=== PATIENT | female | born 1965 | race Caucasian/White ===

== ENCOUNTER → 2019-02-14 13:47 | Outpatient (CLI) | payer OTHER, SELFPAY ==
--- NOTE | 2019-02-14 13:51 | US_ITS ---
STUDY: ULTRASOUND BREAST - RIGHT REASON FOR EXAM: Female, 53 years old. Abnormal screening mammogram. TECHNIQUE: Axial and longitudinal images of the RIGHT breast were performed with a high resolution ultrasound transducer. COMPARISON: Comparison is made with prior outside mammogram dated January 08, 2019. FINDINGS: RIGHT Breast: There is a 5 mm x 4 mm x 3 mm cyst at the 12:00 position of the breast at 2 cm from the nipple. IMPRESSION: 5 mm x 4 mm x 3 mm cyst at the 12:00 position of the breast at 2 cm from the nipple. ASSESSMENT CATEGORY: BIRADS Category 2: Benign. A letter regarding these results will be sent to the patient by the facility within 30 days. Electronically Signed: Carroll Bray, at 14:55 EDT , Service support , STUDY: ULTRASOUND BREAST - LEFT REASON FOR EXAM: Female, 53 years old. Abnormal screening mammogram. TECHNIQUE: Axial and longitudinal images of the LEFT breast were performed with a high resolution ultrasound transducer. COMPARISON: Comparison is made with prior outside mammogram dated January 08, 2019. FINDINGS: LEFT Breast: There is a 5 mm x 4 mm x 3 mm cyst at the 11:00 position of the breast at 2 cm from the nipple. US/Breast Complete Bilateral IMPRESSION: 5 mm x 4 mm x 3 mm cyst at 11:00 position breast at 2 cm from the nipple. ASSESSMENT CATEGORY: BIRADS Category 2: Benign. A letter regarding these results will be sent to the patient by the facility within 30 days. Electronically Signed: Carroll Bray, at 14:55 EDT , Service support ,
== END ==
PROVIDERS: Family Provider Family Medicine; PCP Family Medicine; Referring Provider Family Medicine; Visit Provider Family Medicine
DX: R92.8 Other abnormal and inconclusive findings on diagnostic imaging of breast (principal)
CPT/HCPCS: 76641

== ENCOUNTER 2021-10-06 09:45 | Emergency (ER) | payer OTHER, SELFPAY ==
[2021-10-06 09:45] VITALS: BP 141/82; PULSE 87; RESP 16; TEMP 36.3; O2SAT 100; BMI 20.7
--- NOTE | 2021-10-06 10:11 | RAD_ITS ---
INDICATION: pain EXAMINATION/TECHNIQUE: X-RAY - LEFT XR Elbow Min 3 Views COMPARISON: None. FINDINGS: Soft tissue swelling visualized surrounding the right elbow. Elevation of the anterior fat pad, no significant evaluation of the posterior fat pads is seen. No radiopaque foreign body. No evidence of cortical irregularity or lucency to suggest a displaced fracture, no evidence of lytic or sclerotic bone lesion is seen. Articular surfaces appear unremarkable. There is a lucency visualized along the lateral aspect of the radial head however demonstrates well-corticated borders cysts most likely represents a vascular groove would recommend clinical correlation for localized tenderness. Subtle radiopaque density visualized along the lateral aspect of the radial head on the oblique view RAD/Elbow min 3 Views IMPRESSION: Subtle radiopaque density visualized along the lateral aspect of the radial head on the oblique view, would recommend clinical correlation and follow-up evaluation. Electronically Signed: Lex Mckay MD at 10:41 EST Tel , Service support ,
--- NOTE | 2021-10-06 10:11 | RAD_ITS ---
INDICATION: pain EXAMINATION/TECHNIQUE: X-RAY - RIGHT XR Hand Min 3 Views 3 VIEWS COMPARISON: None. FINDINGS: SOFT TISSUES: No soft tissue swelling or gas. No radiopaque foreign body. BONES/JOINTS: Degenerative bone changes. No acute fracture or subluxation.. Unremarkable alignment. Mild narrowing of the interphalangeal joint spaces is seen but no evidence of erosive changes. Juxta-articular osteopenia is seen. No sclerotic or destructive changes observed. RAD/Hand Min 3 Views IMPRESSION: Degenerative changes, no acute osseous abnormality seen Electronically Signed: Lex Mckay MD at 10:42 EST Tel , Service support ,
--- NOTE | 2021-10-06 10:11 | RAD_ITS ---
INDICATION: pain EXAMINATION/TECHNIQUE: X-RAY - RIGHT XR Wrist Min 3 Views 3 VIEWS COMPARISON: None. FINDINGS: SOFT TISSUES: No soft tissue swelling or gas. No radiopaque foreign body. BONES/JOINTS: No acute fracture or subluxation.. Unremarkable alignment. Mild narrowing of the joint spaces is seen. Degenerative changes seen... No sclerotic or destructive changes observed. RAD/Wrist min 3 Views IMPRESSION: Degenerative changes, no acute osseous abnormality seen. Electronically Signed: Lex Mckay MD at 10:43 EST Tel , Service support ,
--- NOTE | 2021-10-06 10:23 | EDS_ITS ---
HPI History of Present Illness Chief Complaint: Fall Narrative Narrative: hand and wrist pain as well as left elbow pain. Patient suffered a mechanical fall at [id number] female presenting for evaluation of right after trying to cut some straps and lost her balance falling on her her hands and sustaining a bruise to the left arm above the left elbow. She states she hit her face but no LOC, visual complaints, nausea. She has a stable gait. She states that she [facility] however they neglected to do x-rays because they felt there was no acute fractures. Patient notes that she is had some swelling in the right hand and wrist today. She states her bruising over the left elbow is worse. Patient taking ibuprofen and icing the areas of concern. [facility] Medical History Contusion of face Strain of left elbow Strain of left wrist Strain of right wrist Home Medications NK 10/05/21 [History Last Taken Unknown] Allergy/AdvReac Type Severity Reaction Status Date / Time No Known Allergies Allergy Verified 10/05/21 11:47 Surgical History History of repair of hip fracture Social History Smoking Status: Current every day smoker tobacco type: cigarettes ROS ROS ED Constitutional Constitutional ED: Denies chills, fever(s) or sweats Eyes Eyes: Denies blurry vision or change in vision ENT ENT ED: Denies ear pain or sore throat Cardiovascular Cardiovascular: Denies chest pain, palpitations or racing heartbeat Respiratory/Chest Respiratory/Chest: Denies cough, dyspnea or sputum Gastrointestinal Gastrointestinal: Denies abdominal pain, constipation, diarrhea, nausea or vomiting Genitourinary Genitourinary ED: Denies dysuria, hematuria or urinary frequency Musculoskeletal Musculoskeletal: Denies arthralgias, myalgias or neck pain Integumentary Reports other Details: Bruising to right wrist, hand, left elbow. ; Denies abscess, Abrasions or rash Neurologic Neurologic: Denies headache(s), paresthesias or weakness Psychiatric Psychiatric: Denies anxiety, depression, suicidal ideation or suicidal thoughts Endocrine Endocrinology: Denies polydipsia or polyuria EXAM Physical Exam Const Vital Signs: 10/06/21 09:45 10/06/21 09:49 Temperature 97.4 F L Temperature Source Temporal Pulse Rate 87 Respiratory Rate 16 Respiratory Effort Normal Non-Labored Blood Pressure 141/82 H Blood Pressure Mean 101 Pulse Ox 100 Oxygen Delivery Method Room Air Room Air Positive well nourished General Appearance ED: NAD HEENT Reports moist mucous membranes normocephalic Eyes PERRL and EOMs intact bilaterally Resp normal respiratory effort and clear to auscultation bilaterally Cardio regular rate and regular rhythm Extremity Extremity Narrative: Tenderness to palpation over right wrist dorsally. No obvious bony deformities. There are some soft tissue swelling surrounding this area. Patient has full range of motion of the right wrist. Right hand neurovascular intact brisk cap refill to all 5 fingers. Left elbow has some bruising above the olecranon process. This measures about 4 cm in is circular in nature. No bony tenderness over the olecranon. Patient has full range of motion preserved in the left elbow. Neuro oriented x3 and CN's II-XII intact bilaterally Sensorium / Orientation: alert Psych mental status grossly normal Skin Skin Narrative: As noted above MDM MDM MDM Narrative Medical decision making narrative: Patient presenting for evaluation due to a fall and increasing pain and swelling in the right wrist and hand as well as the bruising over the left elbow. I obtained images of the right hand, right wrist, left elbow and on my interpretation there are no fractures or subluxations present. The radiologist does note a small foreign body located adjacent to the radial head however this is not clinically where she is having pain. Is unsure the etiology of this but I do not believe it would change her course. She is placed in a cock-up wrist splint for comfort of her right hand. She is counseled to ice and elevate these. She will [facility] with [facility] to ensure resolution. Patient to continue to use ibuprofen and Tylenol in alternating doses Impression: 1. Fall 2. Right wrist strain 3. Right hand strain 4. Left elbow contusion Lab Data Attestation: I reviewed the patient's lab results. Discharge Plan Triage Chief Complaint: Fall ED Provider: Leonel Choi Dx/Rx/DC Orders Instructions: ED Contusion, Elbow, ED Hand Sprain, ED Wrist Sprain Prescriptions: No Action NK RF: 0 Primary Care Provider: Mark Paige Referrals: [facility] [NON-[facility]] - 2 Days for wound check Mark Paige MD [Primary Care Provider] - Disposition Disposition: Home, Self Care
[2021-10-06 11:26] VITALS: BP 124/66; PULSE 71; RESP 15; O2SAT 98
== END 2021-10-06 11:27 | disposition home or self-care (01) ==
LOC: ED 11:21
PROVIDERS: Emergency Provider Student in an Organized Health Care Education/Training Program; PCP Family Medicine
DX: S66.911A Strain of unspecified muscle, fascia and tendon at wrist and hand level, right hand, initial encounter (principal); S50.02XA Contusion of left elbow, initial encounter; W18.30XA Fall on same level, unspecified, initial encounter; Y93.89 Activity, other specified; Y92.89 Other specified places as the place of occurrence of the external cause; Y99.0 Civilian activity done for income or pay; F17.210 Nicotine dependence, cigarettes, uncomplicated
CPT/HCPCS: 73080; 73110; 73130; 99283

== ENCOUNTER 2022-04-07 08:06 | Emergency (ER) | payer OTHER, SELFPAY ==
[2022-04-07 08:07] VITALS: BP 99/81; PULSE 79; RESP 16; TEMP 36.3; O2SAT 98; BMI 19.7
--- NOTE | 2022-04-07 08:08 | NURSING ---
NO OLD EKGS
--- NOTE | 2022-04-07 08:10 | EKG12_ITS ---
Test Reason : CP Blood Pressure : / mmHG Vent. Rate : 085 BPM Atrial Rate : 085 BPM P-R Int : 122 ms QRS Dur : 078 ms QT Int : 386 ms P-R-T Axes : 079 074 069 degrees QTc Int : 459 ms Normal sinus rhythm Low voltage QRS (Limb Leads) Confirmed by DUTCH MCKEE, ANNY ([id number]), slot editor YOHANA RAMIREZ ([id number]) on 04/11/2022 10:13:17 AM Referred By: Confirmed By:ANNY JUDD MD
[2022-04-07 08:13] VITALS: O2SAT 99
--- NOTE | 2022-04-07 08:21 | EDS_ITS ---
HPI History of Present Illness Chief Complaint: Chest Pain Informant: patient Onset/Context/Timing Onset: Days Activity at onset: gradual Timing: Continuous Quality: Positive for Aching and Dull Location: Left Chest Current Severity: Mild Maximum Severity: Mild Worsened By: Nothing Relieved By: Nothing Associated Symptoms: Positive for Dyspnea; Negative for Nausea, Vomiting, Diaphoresis, Cough, Fever, Lightheadedness, Acid Reflux or Palpitations Narrative Narrative: 56-year-old female no seen past medical history. Currently on no medications. Does have a 30+ pack year history of smoking. Father had some type of cardiac disease no one else in the family. Patient states that she was moving and loading firewood I think around Sunday. Sunday she started having left-sided chest pain. Its been there over the last 4 to 5 days. Nothing particular makes it better or worse. She has no history of cardiac disease. No history of chest pain. She is never had a DVT or PE. She denies any recent travel, surgery or immobilization. There is no family history of clotting disorders or blood clots. She has had no hemoptysis. The pain is not pleuritic. She has had no calf pain or swelling. She denies any exertional symptoms. She is very active. She denies any nausea or diaphoresis. She does not believe she has any history of a prior cardiac catheterization or stress test. Prior Similar Symptoms: No Recent Illness/Hospitalization: No CVD Risk Factors: Positive for Smoking; Negative for Hypertension, Diabetes, Hypercholesterolemia or Family History 1' </=55 PE Risk Factors: Negative for Recent Travel/Surgery, Recent Immobilization, Prior DVT or PE or OCP + Smoking + >/=35 TAD Risk Factors: Negative for Marfan's Syndrome, Hypertension or Family History [facility] Medical History Contusion of face Strain of left elbow Strain of left wrist Strain of right wrist Home Medications NK 10/05/21 [History Last Taken Unknown] Allergy/AdvReac Type Severity Reaction Status Date / Time No Known Allergies Allergy Verified 04/07/22 08:16 Surgical History History of repair of hip fracture Social History Smoking Status: Current every day smoker tobacco type: cigarettes ROS ROS ED ROS Narrative No recent illness. Review of Systems ROS Unobtainable: Denies due to encephalopathy Constitutional Constitutional ED: Denies chills Eyes Eyes: Reports none ENT ENT ED: Denies ear pain Cardiovascular Cardiovascular: Reports as per HPI and chest pain; Denies palpitations or racing heartbeat Respiratory/Chest Respiratory/Chest: Denies cough Gastrointestinal Gastrointestinal: Denies abdominal pain or constipation Genitourinary Genitourinary ED: Denies dysuria Musculoskeletal Musculoskeletal: Denies arthralgias Integumentary Denies abscess Neurologic Neurologic: Denies headache(s) Psychiatric Psychiatric: Denies anxiety Endocrine Endocrinology: Denies cold intolerance Hematologic/Lymphatic Hematologic/Lymphatic: Denies easy bleeding Allergic/Immunologic Allergic/Immunologic ED: Denies mouth swelling EXAM Physical Exam Narrative Exam Narrative: 56-year-old female no acute distress. Vital signs are stable and afebrile. Pulse ox is 98% on room air no signs of hypoxia. H EENT exam unremarkable. Neck nontender no lymphadenopathy. Lungs clear to auscultation bilaterally. Heart regular rate and rhythm no murmur. Abdomen is soft and nontender. Chest wall nontender. Patient is moving all 4 extremities. Equal symmetrical radial pulses. Calves are nontender without edema or cords. Neurologically she is awake and alert with no focal motor deficits. Back is nontender. Const Vital Signs: 04/07/22 08:07 04/07/22 08:13 04/07/22 10:22 Temperature 97.4 F L Temperature Source Temporal Pulse Rate 79 63 Respiratory Rate 16 20 H Blood Pressure 99/81 H 120/69 Blood Pressure Mean 87 86 Pulse Ox 98 99 98 Oxygen Delivery Method Room Air Room Air Room Air Positive well nourished; Negative for obese, cachectic, contractures or unkempt General Appearance ED: Negative for unkempt, cachectic or contractures Nutritional Appearance: Negative for cachectic or obese HEENT Reports moist mucous membranes normocephalic and atraumatic; Negative for trauma or tenderness Eyes PERRL and EOMs intact bilaterally General Eye ED: Negative for pale conjunctiva or scleral icterus Neck no lymphadenopathy, supple and no JVD General: Negative for tenderness Chest Wall inspection of chest normal and palpation of chest normal Resp normal respiratory effort and clear to auscultation bilaterally Effort and Inspection: Negative for respiratory distress or pain with movement Auscultation: Negative for rales, rhonchi or wheezes Cardio regular rate, regular rhythm, S1 normal heart sound, S2 normal heart sound and no murmurs Peripheral Pulses: pulses 2+ throughout GI normal to inspection, nondistended, normoactive bowel sounds, soft to palpation, non-tender, non-distended and no masses; Negative for hepatosplenomegaly Auscultation: Negative for hyperactive bowel sounds Palpation: Negative for splenomegaly, mass or other Back/Spine no CVA tenderness and no thoracic nor lumbar tenderness General Back: Negative for CVA tenderness Cervical Spine: Negative for cervical spine tenderness Extremity normal to inspection General Extremety ED: Negative for edema, pulses abnormal or tenderness General Extremity: Negative for edema or pulses abnormal Neuro oriented x3, CN's II-XII intact bilaterally and no sensory deficits noted Sensorium / Orientation: awake, alert, oriented to person, oriented to place and oriented to time; Negative for confused, lethargic or stuporous Motor Exam: strength 5/5 throughout Psych Appearance: Negative for unkempt Skin no rashes or lesions noted and no wounds General Skin Exam: Negative for jaundice Rashes: No rashes noted Trauma: Negative for abrasion Heart Score History: Moderately Suspicious ECG: Normal Age: >45 - <65 years Risk Factors: 1 or 2 Risk Factors Score: 3 MDM MDM MDM Narrative Medical decision making narrative: 56-year-old female no seen past medical history. Her biggest risk factor she is a smoker. Has not classic but left-sided chest pain. Is not reproducible. She has no risk factors or history of a DVT or PE or any family history. She will undergo cardiac work-up. Her EKG initially is unremarkable. Yayo already treated her with aspirin. Repeat exam at 8:50 AM patient doing well. Exam benign. We have gone over her test results. Just awaiting her D-dimer. Patient doing well at noon. She will be discharged home with outpatient follow- up. Lab Data Attestation: I reviewed the patient's lab results. Lab results narrative: CBC shows a white count of 5. H&H is 16 and 51. Electrolytes show a gap of 4 normal BUN and creatinine. Glucose of 106. Troponin less than 3. Chest x-ray no acute abnormality. D-dimer is normal at 0.46. Both troponins are negative at less than 3. Labs: Laboratory Results - last 24 hr 04/07/22 04/07/22 04/07/22 07:57 07:57 08:10 WBC 5.6 RBC 5.16 Hgb 16.7 H Hct 51.4 H MCV 99.6 H MCH 32.4 H MCHC 32.5 RDW Std Deviation 51.4 H RDW Coeff of Isauro 13.9 Plt Count 298 MPV 8.9 Immature Gran % (Auto) 0.400 Neut % (Auto) 59.7 Lymph % (Auto) 30.4 [place] % (Auto) 7.7 Eos % (Auto) 1.1 Baso % (Auto) 0.7 Absolute Neuts (auto) 3.3 Absolute Lymphs (auto) 1.70 Nucleated RBC % 0 D-Dimer Quant (PE/DVT) 0.46 Sodium 139 Potassium 4.2 Chloride 108 H Carbon Dioxide 27.0 Anion Gap 4 L BUN 12 Creatinine 0.86 Estim Creat Clear Calc 58.65 Est GFR (MDRD) Af Amer 87 Est GFR (MDRD) Non-Af 72 BUN/Creatinine Ratio 14.0 Glucose 106 Calcium 9.6 Troponin I High Sens < 3 L 04/07/22 10:30 WBC RBC Hgb Hct MCV MCH MCHC RDW Std Deviation RDW Coeff of Isauro Plt Count MPV Immature Gran % (Auto) Neut % (Auto) Lymph % (Auto) [place] % (Auto) Eos % (Auto) Baso % (Auto) Absolute Neuts (auto) Absolute Lymphs (auto) Nucleated RBC % D-Dimer Quant (PE/DVT) Sodium Potassium Chloride Carbon Dioxide Anion Gap BUN Creatinine Estim Creat Clear Calc Est GFR (MDRD) Af Amer Est GFR (MDRD) Non-Af BUN/Creatinine Ratio Glucose Calcium Troponin I High Sens < 3 L Radiography Chest X-Ray - ED: 1 View, Read by ED Physician, Heart, Lungs, Mediastinum, Bony Structures, No Acute Disease and Chronic Changes Diagnostic Testing: Clinical Impression(s) from Imaging Studies Chest X-Ray 04/07/22 08:22 IMPRESSION: Hyperinflation. The lungs are clear. Electronically Signed: Carroll Bray MD at 8:46 EDT , Chest x-ray, portable, single view interpreted both by myself and radiologist shows no acute abnormality. Normal cardiac silhouette mediastinum. Suspect old left sixth rib fracture. Rhythm Strip Rhythm Strip: Sinus Rhythm Rate: 85 Ectopy: None EKG Initial EKG: Attestation: I personally reviewed and interpreted this EKG as follows: Interpretation: Sinus Rhythm and No Acute Injury Pattern Comments: Normal sinus rhythm rate 85 no acute signs of NE or ischemia. No ST elevation or depression. No dysrhythmia. Discharge Plan Triage Chief Complaint: Chest Pain ED Provider: Sarmad Larson Dx/Rx/DC Orders Clinical Impression: Chest pain Instructions: ED Chest Pain, Uncertain Cause Prescriptions: No Action NK Primary Care Provider: Care Physician,No Primary Referrals: Mark Paige MD [[facility]] - 3-5 Days if not improving Activity Restrictions/Additional Instructions: Follow up with your primary care physician. If you have recurrent chest pain need to be reevaluated. Long-term try to stop smoking. Disposition Disposition: Home, Self Care
--- NOTE | 2022-04-07 08:22 | RAD_ITS ---
STUDY: X-RAY CHEST REASON FOR EXAM: Female, 56 years old. Chest pain TECHNIQUE: Single AP portable view of the chest. COMPARISON: None. FINDINGS: EKG electrodes are seen. Hyperinflation. The lungs are clear. There is no demonstrated pleural abnormality. Normal size heart. Normal mediastinum and glenda. Normal visualized pulmonary arteries. Normal visualized aortic arch and descending thoracic aorta. Normal visualized thoracic spine. Normal visualized ribs, clavicles, and shoulders. There is no demonstrated abnormality of the visualized soft tissue structures of the upper abdomen. RAD/Chest 1 View (Portable) IMPRESSION: Hyperinflation. The lungs are clear. Electronically Signed: Carroll Bray MD at 8:46 EDT ,
[2022-04-07 08:35] LABS: Absolute Neutrophil Count 3.3 X10^3/uL (2.0-7.7); Basophil# 0.04 X10^3/uL; Basophil% 0.7 % (0-1); Eosinophil# 0.06 X10^3/uL; Eosinophils% 1.1 % (0-5); Hematocrit 51.4 % (37-47); Hemoglobin 16.7 g/dL (12.0-15.0); Lymphocyte % 30.4 % (19-41); Mean Corp Hgb Conc 32.5 g/dL (32-36); Mean Corpuscular Hgb 32.4 pg (27.0-32.0); Mean Corpuscular Volume 99.6 fL (81-99); Mean Platelet Vol. 8.9 fl (6.2-12.0); Monocyte# 0.43 X10^3/uL; Monocyte% 7.7 % (0-10); NRBC Flagged by Analyzer 0 % (0-5); Neutrophil # 3.34 X10^3/uL (2.7-7.7); Neutrophil % 59.7 % (47-70); Platelet Count 298 K/mm3 (150-450); RBC Distribution Width CV 13.9 % (11.6-14.6); RBC Distribution Width SD 51.4 fl (35.1-43.9); Red Blood Count 5.16 M/mm3 (4.2-5.4); White Blood Count 5.6 K/mm3 (4.4-11.0)
[2022-04-07 08:44] LABS: Anion Gap 4 (5-15); BUN 12 mg/dL (7-18); Calcium,Total 9.6 mg/dL (8.5-10.1); Chloride 108 mmol/L (98-107); Creatinine, Serum 0.86 mg/dL (0.55-1.02); EST Glomerular Filtration Rate 72 mL/min (>60); Est Glom Filt Rate - Afr Amer 87 mL/min (>60); Estimated Creatinine Clearance 58.65 ml/min; Glucose 106 mg/dL (74-106); Potassium 4.2 mmol/L (3.5-5.1); Sodium Level 139 mmol/L (136-145); Troponin-I HS (w/2H Reflex) < 3 pg/mL (3.0-54.0)
[2022-04-07 09:19] LABS: D-Dimer Quantitative (DVT/PE) 0.46 FEU/ug/m (0.27-0.49)
[2022-04-07 10:22] VITALS: BP 120/69; PULSE 63; RESP 20; O2SAT 98
[2022-04-07 10:22] LABS: Reflex Troponin-HS? (from REC) Y
[2022-04-07 10:57] LABS: Troponin-I HS < 3 pg/mL (3.0-54.0)
[2022-04-07 12:09] VITALS: BP 117/51; PULSE 67
== END 2022-04-07 12:16 | disposition home or self-care (01) ==
PROVIDERS: Emergency Provider Emergency Medicine; Visit Provider Emergency Medicine
DX: R07.9 Chest pain, unspecified (principal); F17.210 Nicotine dependence, cigarettes, uncomplicated; R06.00 Dyspnea, unspecified
CPT/HCPCS: 36415; 71045; 80048; 84484; 85025; 85379; 93005; 99285; A4216

== ENCOUNTER → 2022-10-23 | Outpatient (CLI) | payer BC, SELFPAY ==
--- NOTE | 2022-10-23 12:38 | EKG12_ITS ---
Test Reason : PRE OP Blood Pressure : / mmHG Vent. Rate : 094 BPM Atrial Rate : 094 BPM P-R Int : 118 ms QRS Dur : 076 ms QT Int : 348 ms P-R-T Axes : 079 079 046 degrees QTc Int : 435 ms Normal sinus rhythm Nonspecific ST abnormality Abnormal ECG Confirmed by DOMINIQUE MCKEE, MARTY ([id number]), makeup editor YOHANA RAMIREZ ([id number]) on 10/24/2022 9:34:30 AM Referred By: NATALIA Confirmed By:MARTY FOX MD
--- NOTE | 2022-10-23 12:51 | RAD_ITS ---
INDICATION: PRE OP EXAMINATION/TECHNIQUE: X-RAY - XR Chest 2 Views COMPARISON: April 07, 2022. FINDINGS: LINES/DEVICES: None. LUNGS: No consolidation, edema or effusion. No pneumothorax. MEDIASTINUM AND CARDIOVASCULAR STRUCTURES: Cardiac silhouette not enlarged. Central airways and mediastinal contour are unremarkable. BONES AND SOFT TISSUES: Unremarkable. RAD/Chest PA and Lateral IMPRESSION: No radiographic evidence of acute cardiopulmonary disease. Electronically Signed: Kvng Godfrey DO at 17:31 EST ,
[2022-10-23 13:38] LABS: Absolute Lymphocyte Count 2.04 X10^3/uL (0.83-4.51); Absolute Neutrophil Count 5.8 X10^3/uL (2.0-7.7); Basophil# 0.03 X10^3/uL; Basophil% 0.4 % (0-1); Eosinophil# 0.03 X10^3/uL; Eosinophils% 0.4 % (0-5); Hematocrit 48.5 % (37-47); Hemoglobin 16.2 g/dL (12.0-15.0); Lymphocyte # 2.04 X10^3/ul (0.83-4.51); Lymphocyte % 24.8 % (19-41); Mean Corp Hgb Conc 33.4 g/dL (32-36); Mean Corpuscular Hgb 33.1 pg (27.0-32.0); Mean Corpuscular Volume 99.2 fL (81-99); Mean Platelet Vol. 9.5 fl (6.2-12.0); Monocyte# 0.33 X10^3/uL; NRBC Flagged by Analyzer 0 % (0-5); Neutrophil # 5.77 X10^3/uL (2.7-7.7); Neutrophil % 70.2 % (47-70); Platelet Count 284 K/mm3 (150-450); RBC Distribution Width CV 13.5 % (11.6-14.6); Red Blood Count 4.89 M/mm3 (4.2-5.4); White Blood Count 8.2 K/mm3 (4.4-11.0)
[2022-10-23 14:07] LABS: Anion Gap 10 (5-15); BUN 14 mg/dL (7-18); BUN/Creat Ratio 15.5 RATIO (10-20); Calcium,Total 9.5 mg/dL (8.5-10.1); Chloride 104 mmol/L (98-107); EST Glomerular Filtration Rate 68 mL/min (>60); Est Glom Filt Rate - Afr Amer 82 mL/min (>60); Glucose 160 mg/dL (74-106); Potassium 3.5 mmol/L (3.5-5.1); Sodium Level 141 mmol/L (136-145)
== END | disposition home or self-care (01) ==
LOC: PSN 12:36
PROVIDERS: PCP Family Medicine; Visit Provider Physician Assistant
DX: Z01.818 Encounter for other preprocedural examination (principal); Z01.810 Encounter for preprocedural cardiovascular examination
CPT/HCPCS: 36415; 71046; 80048; 85025; 93005